=== PATIENT | female | born 1980 | race Caucasian/White ===

== ENCOUNTER 2021-06-10 11:42 | Day surgery (SDC) | payer BC, OTHER ==
[~2021-06-10] VITALS: Ht 163.8 cm; Wt 70.7 kg
[~2021-06-10 11:42] MED LIST: BUPIVACAINE/PF 0.5% ONE; EPINEPHRINE 1 MG/ML, 1ML ONE; GENTAMICIN 80 MG/2 ML ONE; LIDOCAINE/PF 1%, 30ML ONE; THROMBIN 20,000 UNIT VIAL TP ONE; VANCOMYCIN 1,000 MG ONE
[2021-06-10] MEDS ORDERED: GABA300T2 PO (12:18)
[2021-06-10] MEDS ORDERED: DICL-249 PO (12:39)
[2021-06-10] MEDS ORDERED: CELE-47 PO (12:39)
[2021-06-10] MEDS ORDERED: GABA300C PO (12:39)
[2021-06-10 12:42] VITALS: BP 112/74
[2021-06-10] MEDS ORDERED: CHLORHEXIDINE 15 ML UDC ONE (12:45)
[2021-06-10 12:48] LABS: HCG UR SG 1.021 (1.003-1.030)
[2021-06-10] MEDS ORDERED: CHLORHEXIDINE 15 ML UDC PO ONE (13:00)
[2021-06-10] MEDS ORDERED: LACTATED RINGERS 1,000 ML IV SCH (13:30)
[2021-06-10] MEDS ORDERED: MIDAZOLAM 1 MG/ML, 2ML ONE (13:55)
[2021-06-10] MEDS ORDERED: FENTANYL PF 250 MCG/5ML ONE (13:55)
[2021-06-10] MEDS ORDERED: PROPOFOL 100 ML ONE (14:34)
[2021-06-10] MEDS ORDERED: LIDOCAINE 1%-EPI 1:100K, 20ML INFIL ONE (14:37)
[2021-06-10] MEDS ORDERED: GENTAMICIN 80 MG/2 ML IV ONE (14:37)
[2021-06-10] MEDS ORDERED: VANCOMYCIN 1,000 MG IVPB ONE (14:37)
[2021-06-10] MEDS ORDERED: BUPIVACAINE/PF-EPI 0.5% 1:200K INFIL ONE (14:37)
[2021-06-10] MEDS ORDERED: DEXAMETHASONE 4 MG/ML, 1ML ONE (16:06)
[2021-06-10] MEDS ORDERED: NEOSTIGMINE 1 MG/ML, 10ML ONE (16:06)
[2021-06-10] MEDS ORDERED: PROPOFOL 10 MG/ML, 20ML ONE (16:06)
[2021-06-10] MEDS ORDERED: SUCCINYLCHOLINE 20 MG/ML, 10ML ONE (16:06)
[2021-06-10] MEDS ORDERED: ROCURONIUM 10MG/ML,5ML ONE (16:06)
[2021-06-10] MEDS ORDERED: CEFAZOLIN 1,000 MG ONE (16:06)
[2021-06-10] MEDS ORDERED: GLYCOPYRROLATE 0.2MG/1ML, 5ML ONE (16:06)
[2021-06-10] MEDS ORDERED: ONDANSETRON 2MG/ML, 2ML ONE (16:06)
[2021-06-10] MEDS ORDERED: KETOROLAC 30 MG/1 ML ONE (16:12)
[2021-06-10] MEDS ORDERED: MEPERIDINE/PF 25MG/ML,1ML ONE (16:19)
[2021-06-10] MEDS ORDERED: HYDROmorphone 2 MG/ML, 1ML IVPush PRN (16:30)
[2021-06-10] MEDS ORDERED: ACETAMINOPHEN 325 MG TABLET PO PRN ×2 (16:30)
[2021-06-10] MEDS ORDERED: PROMETHAZINE 25 MG/ML, 1ML IV PRN (16:30)
[2021-06-10] MEDS ORDERED: morphine SULFATE 10 MG/ML, 1ML IVPush PRN (16:30)
[2021-06-10] MEDS ORDERED: hydrALAzine 20 MG/ML, 1ML IV PRN (16:30)
[2021-06-10] MEDS ORDERED: ALBUTEROL SULFATE 2.5 MG/3 ML NPPB PRN (16:30)
[2021-06-10] MEDS ORDERED: KETOROLAC 30 MG/1 ML IV PRN (16:30)
[2021-06-10] MEDS ORDERED: PROMETHAZINE 25 MG/ML, 1ML IM PRN (16:30)
[2021-06-10] MEDS ORDERED: ONDANSETRON 2MG/ML, 2ML IVPush PRN (16:30)
[2021-06-10] MEDS ORDERED: MEPERIDINE/PF 25MG/0.5ML IVPush PRN (16:30)
[2021-06-10] MEDS ORDERED: DIAZEPAM 5 MG/ML, 2ML IVPush PRN (16:30)
[2021-06-10] MEDS ORDERED: LABETALOL 5MG/ML, 20ML IV PRN (16:30)
[2021-06-10] MEDS ORDERED: OXYcodone 5 MG/5 ML ORAL.SOL UDC PO PRN ×2 (16:30)
[2021-06-10] MEDS ORDERED: KETOROLAC 30 MG/1 ML IVPush SCH (16:30)
[2021-06-10] MEDS ORDERED: FENTANYL PF 100 MCG/2ML IV PRN (16:30)
[2021-06-10] MEDS ORDERED: ACETAMINOPHEN 650 MG/20.3 ML UDC ONE (16:31)
[2021-06-10] MEDS ORDERED: OXYcodone 5 MG/5 ML ORAL.SOL UDC ONE (16:31)
== END 2021-06-10 19:50 | disposition home or self-care (01) ==
LOC: OUT 11:42
PROVIDERS: ATTEND Orthopaedic Surgery Orthopaedic Surgery of the Spine
DX: M51.17 Intervertebral disc disorders with radiculopathy, lumbosacral region (principal); Z20.822 Contact with and (suspected) exposure to COVID-19; Z79.1 Long term (current) use of non-steroidal anti-inflammatories (NSAID); Z79.899 Other long term (current) drug therapy; Z98.890 Other specified postprocedural states
CPT/HCPCS: 63030; 72100; 81025; 87635; C1751; J0171; J0330; J0690; J1100; J1580; J1885; J2250; J2405; J2704; J2710; J3010; J3370; J7120